=== PATIENT | female | born 1995 | race American Indian/Alaskan Native ===

== ENCOUNTER 2016-08-02 05:21 | Day surgery (SDC) | payer BC, SELFPAY ==
[~2016-08-02] VITALS: Ht 177.8 cm; Wt 70.3 kg
--- NOTE | ~2016-08-02 | S ---
[facility] [place] [address] SURGICAL PATH RPT PROCEDURE Name: MARK CABRALES I Room #: DEP [facility] M.R.#: [id number] Admission: 08/02/16 Date of : 89 Discharge: 08/02/16 Report #: [id number] Path Case #: [id number] PATHOLOGY REPORT COLLECTION DATE: 08/02/2016 RECEIVED DATE: 08/02/2016 SUBMITTING PHYS: Dr. Rick Garcia OTHER PHYS: Dr. Byron Chavez SPECIMEN(S) RECEIVED: A.Gallbladder * * * * * * * * * * * * FINAL DIAGNOSIS: "Gallbladder", cholecystectomy: - Chronic cholecystitis. (CLW:all; d/t: 08/03/2016) PATHOLOGIST: Kenzie Barry M.D. REPORT ELECTRONICALLY SIGNED BY: Kenzie Barry M.D. DATE/TIME: 08/03/2016 16:54 * * * * * * * * * * * * GROSS PATHOLOGY: Received in formalin labeled "Mark Cabrales, gallbladder," is a 6.4 x 2.6 x 1.5, previously opened gallbladder with pink-poon serosal surfaces. Opening the gallbladder reveals a velvety, light finney, bile-stained mucosa and an average wall thickness of 0.1 cm. Calculi are not present and no masses are noted grossly. Software Test Engineer sections from the body and fundus are submitted along with the proximal margin in cassette A1. (CAA; 08/02/2016) CLINICAL HISTORY: Biliary dyskinesia INITIAL CPT CODE(S): A; 34926 Professional services performed by [facility] at [facility] [address], [place] [address] Technical services performed by [facility] at [address] [place] [id number]. [facility] [address] [place] [address] SURGICAL PATH RPT PROCEDURE Name: MARK CABRALES I Room #: DEP INRickey Lee#: [id number] Admission: 08/02/16 Date of : 95 Discharge: 08/02/16 Report #: [id number] Path Case #: [id number] [facility] [address] [address] PHONE: [phone] DIRECTOR: Seth Isaacs M.D. * * * END OF REPORT * * *
--- NOTE | ~2016-08-02 | O ---
[facility] [place] [address] OPERATIVE REPORT Name: MARK BREAUX I Room #: 150-11 [facility]..#: [id number] Admission: 08/02/16 Attend Phys: Rick Garcia MD, Discharge: Date of : 95 Report #: [id number] THIS REPORT FOR: //name// CC: [facility] physician/PCP Rick Garcia DATE OF SERVICE: 08/02/2016 PREOPERATIVE DIAGNOSIS: Biliary colic. POSTOPERATIVE DIAGNOSES: 1. Chronic cholecystitis. 2. Cholesterolosis. 3. Cholelithiasis. SURGEON: Rick Garcia MD. BIOLOGY MANAGER: Byron Chavez MD. ANESTHESIA: General endotracheal anesthesia. ESTIMATED BLOOD LOSS: Minimal (less than 5 mL). COMPLICATIONS: None appreciated. SPECIMENS: Gallbladder to pathology. INDICATIONS: The patient is a 21-year-old female with a several year history of progressively worsening right upper quadrant pain, nausea, and bloating, that occurs immediately in a post-prandial setting. The patient has been evaluated with an ultrasound of the abdomen, which was normal, as well as a PIPIDA scan of the abdomen which showed an extremely high ejection fraction of greater than 75%. Documentation from that PIPIDA scan state that she had no ill effects during the study; however, upon questioning the patient, she states that she slept through most of the study, but awoke with discomfort upon injection of a medication through her IV, which is suspected to be cholecystokinin. Nonetheless, she continues with persistent immediate postprandial nausea, cramping pain, and bloating consistent with biliary disease. After a thorough discussion with the patient, we have elected to proceed with laparoscopic cholecystectomy today. Intraoperative findings of marked adhesions in the right upper quadrant of omentum, plastered to the gallbladder wall were seen, as well as obvious cholesterolosis, showing through the wall of an abnormal gallbladder and postoperative findings of two small gallstones in addition to cholesterolosis, consistent with chronic cholecystitis were identified. [address] [address] OPERATIVE REPORT Name: MARK BREAUX I Room #: 150-11 [facility] M.R.#: [id number] Admission: 08/02/16 Attend Phys: Rick Garcia MD, Discharge: Date of : 95 Report #: [id number] DESCRIPTION OF PROCEDURE: After explaining the risks, benefits, and alternatives of the procedure with the patient in detail in the preoperative holding area and obtaining written consent, the patient was brought to the operating room and placed supine on the operating room table. After conducting a thorough timeout procedure verifying correct patient and procedure, the patient was given general endotracheal anesthesia. Once adequate anesthesia was obtained, SCDs were placed on the patient's bilateral lower extremities, and she was given a preoperative dose of antibiotics in line with the SCIP protocol. The patient's abdomen was prepped and draped in the standard surgical sterile fashion. 5 mL of 0.5% Marcaine with epinephrine were used to anesthetize the skin in the infraumbilical location. A #15 bladed scalpel was used to create a 1 cm curvilinear incision at this location. An 11 mm Visiport was placed over 0-degree 10 mm laparoscope and was introduced through this incision site. Once intraabdominal placement was verified visually, the obturator for the trocar and laparoscope were both removed, and the abdomen was insufflated to 15 mmHg using carbon dioxide gas. The laparoscope was changed to a 10 mm 30-degree laparoscope, which was reintroduced through this trocar. The entire abdomen was evaluated to ensure no injury upon entry. We immediately saw evidence of the adhesions in the right upper quadrant, obscuring our visualization of the gallbladder. The patient was now placed in reverse Trendelenburg with right side elevated, and I proceeded to place three additional 5 mm trocars. One was placed in the subxiphoid location, and 2 were placed along the patient's right subcostal margin. All three additional 5 mm ports were placed under direct vision after anesthetizing the skin at each location with 5 mL of 0.5% Marcaine with epinephrine, and I had created small skin nicks using #15 bladed scalpel. Using the inferolateral most port along the patient's right flank, the fundus of the gallbladder was grasped and retracted cephalad. I now proceeded to take down all of the adhesions of the omentum, plastered to the gallbladder wall using Harmonic scalpel for hemostasis. Care was taken to identify the duodenum and transverse colon, and we stayed well away from both of those structures at all times. Once I had taken down all the adhesions, I proceeded to dissect down around the cholecystocystic junction carefully using combination of Harmonic scalpel and Maryland dissector. Once I had attained a critical view, namely the cystic duct, emanating from the infundibulum of the gallbladder and coursing the common bile duct, as well as cystic artery running through the surface of the gallbladder, and I had created a window behind each, I transected the cystic artery nearest to the gallbladder side using Harmonic scalpel for long-term hemostasis. A single clip was now placed along the cystic duct, nearest to the gallbladder side and a small ductotomy was made just distal to this clip using EndoShears. The ductotomy was cannulated using the taut cholangiocatheter setup and an intraoperative cholangiogram was obtained. We had prompt opacification of the cystic duct with both intra and extrahepatic bile ducts becoming opacified. There was antegrade flow of contrast into the duodenum with no evidence of filling defects or obstruction. The cholangiocatheter setup was now removed, three clips were placed along the cystic duct nearest to the common [facility] [address] [place] [address] OPERATIVE REPORT Name: MARK BREAUX Uche Room #: 150-11 [facility]..#: [id number] Admission: 08/02/16 Attend Phys: Rick Garcia MD, Discharge: Date of : 95 Report #: [id number] bile duct side, and it was transected above these clips using Harmonic scalpel to help seal the end of the duct closed. Further retraction at the infundibulum of the gallbladder in cephalad direction allowed me to elevate the gallbladder off the liver bed using Harmonic scalpel for complete hemostasis. Once completely detached, laparoscope was removed, changed to a 5-mm 30-degree laparoscope, which was reintroduced through the right midclavicular 5 mm trocar. The EndoCatch bag was placed in the infraumbilical trocar, and the specimen was placed within it under direct vision. The pursestring suture was drawn, and the specimen was removed from the abdomen under direct vision with ease. Evaluation of the gallbladder fossa at this juncture showed no evidence of spillage, and certainly no bleeding, as we had complete hemostasis. The clips were seated nicely on the cystic duct stump. I now proceeded to close the infraumbilical fascial incision using 0 PDS suture on a Larry-Ariel needle under direct vision. This was tied down under direct vision after reducing the insufflation pressure to 5 mmHg. This was again tied down under direct vision to ensure that I did not catch a loop of bowel or omentum in the suture repair. All ports were removed under direct vision. The abdomen was fully desufflated. 4-0 Monocryl was used in a standard subcuticular fashion for all skin incisions and Dermabond glue was applied to all skin wounds. At the end of the procedure, all instrument, needle, and sponge counts were correct. The patient tolerated the procedure without incident where she was awakened in the operating room, and transitioned to the recovery room in stable condition with no apparent complications. The gallbladder was opened on the back table showing significant findings of marked cholesterolosis consistent with chronic cholecystitis, as well as two small punctate gallstones, but no other pathologic findings were identified. <ELECTRONICALLY SIGNED> By: Rick Garcia MD, FACS 08/02/16 [id number] [id number] Rick Garcia MD, FACS /nt
[2016-08-02 11:30] VITALS: BP 89/52
[2016-08-02 13:54] VITALS: BP 89/52
== END 2016-08-02 14:30 | disposition home or self-care (01) ==
LOC: OR 05:21 → TBA 05:21 → OR 14:30
DX: K80.10 Calculus of gallbladder with chronic cholecystitis without obstruction (principal); F17.210 Nicotine dependence, cigarettes, uncomplicated
CPT/HCPCS: 10086; 50010; 50101; 50249; 50411; 50555; 50558; 50962; 51975; 52265; 53307; 54022; 54118; 55245; 55317; 56462; 56525; 56526; 62110; 62900; 70005